=== PATIENT | female | born 1980 | race Two or more races ===

== ENCOUNTER 2021-12-31 18:11 | Emergency (ER) | payer OTHER ==
[2021-12-31 18:45] VITALS: BP 103/78; PULSE 72; RESP 18; TEMP 97.8; BMI 20.1
[2021-12-31 20:28] LABS: HEMATOCRIT 35.9 % (32.4-45.2); HEMOGLOBIN 12.3 G/dL (10.7-15.3); MCH 27.6 pg (25.7-33.7); MCHC 34.3 g/dl (32.0-36.0); MEAN CELL VOLUME 80.5 fl (80-96); MEAN PLT VOLUME 8.1 fl (7.5-11.1); PLATELET COUNT 296.1 10^3/uL (134-434); RBC 4.46 10^6/uL (3.60-5.2); RDW 16.4 % (11.6-15.6); WHITE BLOOD COUNT 6.7 10^3/uL (4.0-10.8)
[2021-12-31 20:33] LABS: ALBUMIN 4.4 g/dl (3.4-5.0); BILIRUBIN,TOTAL 0.5 mg/dl (0.2-1); CALCIUM 8.9 mg/dl (8.5-10); CREATININE 0.6 mg/dl (0.55-1.3); TOT PROT 7.4 g/dl (6.4-8.2)
[2021-12-31 20:59] LABS: PLATELET ESTIMATE ADEQUATE
== END 2021-12-31 21:05 | disposition home or self-care (01) ==
LOC: FER 18:11
DX: R00.2 Palpitations (principal); Z86.79 Personal history of other diseases of the circulatory system
CPT/HCPCS: 36415; 80053; 84443; 85027; 93005; 99284-25